=== PATIENT | male | born 1970 | race Caucasian/White ===

== ENCOUNTER → 2016-06-28 | Day surgery (SDC) | payer OTHER ==
[~2016-06-28] VITALS: Ht 177.8 cm; Wt 86.0 kg
[~2016-06-28] MED LIST: LAMICTAL100 MG PO; NORCO 10-325 T1 EACH PO; NORCO 5-325 TA1 EACH PO; OMEPRAZOLE40 MG PO; PRINIVIL OR ZES10 MG PO; ZOLOFT100 MG PO
--- NOTE | ~2016-06-28 | OR ---
PATIENT'S NAME: LES SCHULTZ [facility] AGE: 45 Y [address] ROOM: [place] [address] LOCATION: [facility] [place] ADMIT DATE: 06/28/2016 OR/Procedure Report DISCHARGE DATE: FAMILY PHYSICIAN: Aram Barclay MD ATTENDING PHYSICIAN: Cam Adan SURGEON: Cam Adan MD DOG SHOW JUDGE: Josh Zhang PA-C DATE OF PROCEDURE: 06/28/2016 REFERRING PHYSICIAN: Gerard Smith MD PREOPERATIVE DIAGNOSIS: Biliary colic. POSTOPERATIVE DIAGNOSIS: Biliary colic. PROCEDURE PERFORMED: Laparoscopic cholecystectomy. FINDINGS: A critical window was able to be obtained. No stones were present. ESTIMATED BLOOD LOSS: Less than 20 mL. COMPLICATIONS: None. INDICATIONS: The patient is a 45-year-old male who had presented with signs and symptoms of biliary colic. His HIDA scan was abnormally high. He had GI workup without significant findings. Tried diet modification and proton pump inhibitors and had no resolution of his symptoms. His symptoms were colicky, worse after eating. Because of this, we did offer cholecystectomy. Discussed risks of the surgery which included, but were not limited to bleeding, infection, chronic pain, bile duct injury, as well as ongoing symptomatology. He understood the risks and elected to proceed. DESCRIPTION OF PROCEDURE: The patient was taken into the operating room. He was placed supine, given IV sedation, and subsequently intubated. His abdomen was prepped with ChloraPrep and sterilely draped. Local anesthetic was infiltrated just superior to the umbilicus. A transverse incision was created. The abdomen was elevated, Veress needle was inserted, and pneumoperitoneum was induced. Following this, a 5 mm trocar was inserted, followed by insertion of the camera. There was no injury from initial trocar placement. Three more trocars were then positioned; an 11 mm epigastric, and two 5 mm right subcostal ports. Skin overlying the peritoneum was first anesthetized prior to making these incisions. All 3 trocars were inserted under direct visualization. The gallbladder was grasped and was elevated over the dome of the liver. The infundibulum was grasped and retracted inferiorly and laterally to expose the Calot triangle. The cystic duct and artery were PATIENT'S NAME: LES SCHULTZ [facility] AGE: 45 Y [address] ROOM: [place] [address] LOCATION: [facility] [place] ADMIT DATE: 06/28/2016 OR/Procedure Report DISCHARGE DATE: FAMILY PHYSICIAN: Aram Barclay MD ATTENDING PHYSICIAN: Cam Adan dissected around circumferentially. A critical window was able to be obtained. Both of these structures were then doubly clipped and divided. The gallbladder was then removed from the liver bed using electrocautery. This was grasped and brought out through the epigastric port site. No stones were palpable in the gallbladder. The liver bed was then inspected and appeared hemostatic. Clips appeared to be in good position on both the cystic duct and artery. The area was irrigated. Fluid was removed. The pneumoperitoneum was released. The trocars were removed. The trocar sites appeared hemostatic. The fascia of the epigastric port site was approximated with 0 Vicryl suture, followed by skin closure of all 4 port sites with 4-0 Monocryl suture. Steri- Strips and sterile dressings were placed. The patient was extubated and sent to Recovery in good condition. CAM ADAN MD BJO/modl /[id number] d: 06/28/16 1849 t: 07/06/16 1503, OPERATIVE SUMMARY
== END | disposition disaster alternative care site (69) ==
LOC: GPOC 06-27 09:00 → GSDC 08:48
PROC: 0FT44ZZ Resection of Gallbladder, Percutaneous Endoscopic Approach (ICD-10-PCS; principal; 2016-06-28)
DX: K80.50 Calculus of bile duct without cholangitis or cholecystitis without obstruction (principal); R93.2 Abnormal findings on diagnostic imaging of liver and biliary tract
CPT/HCPCS: J0694; J1100; J1885; J2001; J2175; J2405; J2765; J3010; J7120